=== PATIENT | female | born 1960 | race Hispanic/Latino ===

== ENCOUNTER 2017-08-19 05:57 | Emergency (ER) | payer BC ==
[~2017-08-19 05:57] MED LIST: ATOR40TA71 PO; HERBAL SUPPLEMENT PO; HYDR12.54 PO; IBUP-2353 PO; METF10004 PO; MULTIVITAMIN W/IRON PO; SUPER B COMPLEX PO
[2017-08-19] MEDS ORDERED: SODIUM CHLORIDE 0.9% 1000ML 1,000 ML IV ONE (06:21)
[2017-08-19] MEDS ORDERED: ONDANSETRON HCL 4 MG/2 ML VIAL ONE (06:21)
[2017-08-19 06:28] LABS: BASOPHILS % (AUTO) 0.4 % (0.0-5.0); EOSINOPHILS % (AUTO) 0.8 % (0.0-8.0); HEMATOCRIT 40.2 % (36-48); LYMPHOCYTES % (AUTO) 7.8 % (21.0-51.0); MEAN CORPUSCULAR HEMOGLOBIN 27.7 pg (27.0-33.0); MEAN CORPUSCULAR HGB CONC 34.2 g/dL (32.0-36.0); MONOCYTES % (AUTO) 4.4 % (3.0-13.0); NEUTROPHILS % (AUTO) 86.6 % (40.0-77.0); PLATELET COUNT (AUTO) 303 K/uL (130-400); RED BLOOD CELL COUNT(AUTO) 4.96 MIL/uL (4.00-5.50); RED CELL DISTRIBUTION WIDTH 14.2 % (11.0-15.5); WHITE BLOOD COUNT (AUTO) 10.5 K/uL (4.8-10.8)
[2017-08-19] MEDS ORDERED: DICYCLOMINE HCL 20 MG TAB ONE (06:37)
[2017-08-19 06:38] LABS: ALBUMIN 3.7 g/dL (3.5-5.0); BILIRUBIN,DIRECT 0.2 mg/dL (0.0-0.3); BILIRUBIN,TOTAL 0.9 mg/dL (0.2-1.0); POTASSIUM 3.3 mmol/L (3.5-5.1); TOTAL PROTEIN, SERUM 7.7 g/dL (6.0-8.3)
[2017-08-19] MEDS ORDERED: KETOROLAC TROMETHAMINE 30MG/ML ONE (06:44)
[2017-08-19] MEDS ORDERED: INSULIN HUMULIN R 100 UNIT/ML 3ML ONE (06:45)
[2017-08-19] MEDS ORDERED: POTASSIUM BICARB/CIT AC 25 MEQ TABLET.EFF ONE (07:21)
== END 2017-08-19 08:11 | disposition home or self-care (01) ==
LOC: EDH 05:57
DX: J09.X2 Influenza due to identified novel influenza A virus with other respiratory manifestations (principal); E11.65 Type 2 diabetes mellitus with hyperglycemia; E87.6 Hypokalemia; I10 Essential (primary) hypertension; Z88.6 Allergy status to analgesic agent
CPT/HCPCS: 36415; 80048; 80076; 82948; 84484; 85025; 93005; 96361; 96374; 96375; 99285; J1815; J1885; J2405; J7030

== ENCOUNTER 2024-12-22 02:50 | Observation (INO) | payer BC, MEDICARE ==
[~2024-12-22] VITALS: Ht 157.5 cm; Wt 65.8 kg
[~2024-12-22 02:50] MED LIST changes: -IBUP-2353 PO; +IBUP-2784 PO; +METF-446 PO; -METF10004 PO
[2024-12-22 03:26] LABS: BASOPHILS # (AUTO) 0.02 K/uL (0.00-0.20); BASOPHILS % (AUTO) 0.4 % (0.0-5.0); EOSINOPHILS # (AUTO) 0.05 K/uL (0.00-0.70); EOSINOPHILS % (AUTO) 0.9 % (0.0-8.0); HEMATOCRIT 37.1 % (36-48); IMMATURE GRANULOCYTE ABSOLUTE 0.04 K/uL (0-1); LYMPHOCYTES # (AUTO) 0.6 K/uL (1.0-4.8); LYMPHOCYTES % (AUTO) 9.9 % (21.0-51.0); MEAN CORPUSCULAR HEMOGLOBIN 27.4 pg (27.0-33.0); MEAN CORPUSCULAR HGB CONC 33.7 g/dL (32.0-36.0); MEAN CORPUSCULAR VOLUME 81.4 fL (79-99); MONOCYTES # (AUTO) 1.1 K/uL (0.1-1.0); MONOCYTES % (AUTO) 20.1 % (3.0-13.0); NEUTROPHILS # (AUTO) 3.8 K/uL (1.8-7.7); PLATELET COUNT (AUTO) 248 K/uL (130-400); RED BLOOD CELL COUNT(AUTO) 4.56 MIL/uL (4.00-5.50); WHITE BLOOD COUNT (AUTO) 5.6 K/uL (4.8-10.8)
[2024-12-22 03:33] LABS: RAPID GROUP A STREP negative (NEGATIVE)
[2024-12-22 03:35] LABS: CREATININE 2.2 mg/dL (0.5-1.0); POTASSIUM 3.1 mmol/L (3.5-5.1)
--- NOTE | 2024-12-22 03:40 | ERN ---
ED Note History of Present Illness Stated Complaint: C/O, ABD PAIN W/ DRY HEAVES AND DIARRHEA Chief Complaint: Abdominal Pain Time Seen by MD: 03:19 Dictation: This is a 64-year-old female who presented to the emergency room with complaints of abdominal pain dry heaves and severe nausea and diarrhea. This has been going on since Friday and patient was seen in the [facility] urgent care and was basically given nausea medicine and educated on hydrating herself. Patient woke up at 2 and was continuing to have diarrhea and felt extremely weak and decided to come into the ER. He has not been able to eat or keep anything down with a profuse diarrhea. Also reports subjective fevers with chills. No other family members are sick. Temperature 97.1 pulse 89 respirations 20 blood pressure 137/70 with a pulse oximetry of 98% on room air Her chronic medical problems include diabetes mellitus, hypertension and anemia Allergies: Coded Allergies: lisinopril (Unverified Allergy, Unknown, 10/09/15) Home Meds Reported Medications Atorvastatin Calcium (Atorvastatin Calcium) 40 Mg Tablet, 40 MG PO HS, TAB 03/19/16 Metformin HCl (Metformin HCl) 1,000 Mg Tablet, 1000 MG PO BID, TAB 03/19/16 Ibuprofen (Ibuprofen 200 mg Tablet) 200 Mg Tablet, 200 MG PO AD PRN for PAIN, TAB 10/06/15 [Super B Complex] No Conflict Check, 2 CAP PO DAILY 10/06/15 [Herbal Supplement] No Conflict Check, 2 CAP PO DAILY 10/06/15 [Multivitamin W/Iron] No Conflict Check, 3 TAB PO DAILY 10/06/15 Hydrochlorothiazide (Hydrochlorothiazide) 12.5 Mg Tablet, 12.5 MG PO DAILY, TAB 10/06/15 Past Medical History Past Medical History: Anemia, Diabetes-Type II, Hypertension Surgical History: Cholecystectomy Family History: Negative Social History: Negative History: Not Applicable RN Note Reviewed/Agreed w/PFSH: Yes Review of System Dictation Constitutional: Negative for fever,chills, and weight loss Eyes: Negative for injury, pain,redness, and discharge ENT: Negative for injury,pain or swelling Cardiovascular: Negative for chest pain, palpitations, and edema Respiratory: Negative for shortness of breath, cough, and wheezing, Abdomen/GI: Positive for abdominal pain, nausea, vomiting, diarrhea, and denied constipation Back: Negative for injury and pain : Negative for injury, bleeding and discharge MS/Extremity: Negative for injury and deformity Skin: Negative for rash, and discoloration Neuro: Negative for headache, weakness, numbness, tingling, and seizure Psych: Negative for suicide ideation, homicidal ideation, and hallucinations Initial Vital Sign VS Vital Signs Date Time Temp Pulse Resp B/P (MAP) Pulse Ox O2 Delivery O2 Flow Rate FiO2 12/22/24 02:52 97.2 89 20 137/70 98 Room Air 12/22/24 03:21 0 21 Physical Exam Dictation General: awake, alert, NAD Head/Face: Normocephalic, atraumatic Eyes: PERRL, EOMI, vision at baseline ENT: oral cavity clear, TMs clear, no signs of infection Neck: Trachea midline, supple, no nuchal rigidity Cardiovascular: RRR, normal S1/S2, No MRGs, no JVD Respiratory: CTAB, no respiratory distress, No rales or wheezes Abdomen: Soft, non-tender, non-distended, normal bowel sounds, no guarding or rebound. Skin: Warm, dry, normal turgor, no rash MS/Extremity: Pulses equal, no cyanosis, neurovascular intact, FROM Neuro: COAx4, GCS 15, strength 5/5, CN 2-12 intact, normal cerebellar exam, normal gait, Psych: Normal behavior, mood, and affect normal Extremities-trace edema without any palpable cords, Homans sign is negative Results (Laboratory/Radiology) Laboratory/Radiology Laboratory Tests Test 12/22/24 03:11 12/22/24 03:17 White Blood Count 5.6 K/uL (4.8-10.8) Red Blood Count 4.56 MIL/uL (4.00-5.50) Hemoglobin 12.5 g/dL (12.0-16.0) Hematocrit 37.1 % (36-48) Mean Corpuscular Volume 81.4 fL (79-99) Mean Corpuscular Hemoglobin 27.4 pg (27.0-33.0) Mean Corpuscular Hemoglobin Concent 33.7 g/dL (32.0-36.0) Red Cell Distribution Width 16.0 % (11.0-15.5) H Platelet Count 248 K/uL (130-400) Mean Platelet Volume 10.1 fL (7.5-10.5) Immature Granulocyte % (Auto) 0.7 % (0-1) Neutrophils (%) (Auto) 68.0 % (40.0-77.0) Lymphocytes (%) (Auto) 9.9 % (21.0-51.0) L Monocytes (%) (Auto) 20.1 % (3.0-13.0) H Eosinophils (%) (Auto) 0.9 % (0.0-8.0) Basophils (%) (Auto) 0.4 % (0.0-5.0) Neutrophils # (Auto) 3.8 K/uL (1.8-7.7) Lymphocytes # (Auto) 0.6 K/uL (1.0-4.8) L Monocytes # (Auto) 1.1 K/uL (0.1-1.0) H Eosinophils # (Auto) 0.05 K/uL (0.00-0.70) Basophils # (Auto) 0.02 K/uL (0.00-0.20) Absolute Immature Granulocyte (auto 0.04 K/uL (0-1) Nucleated Red Blood Cells 0.0 % (0.0-0.19) White Cell Morphology Comment See comments Sodium Level 136 mmol/L (136-145) Potassium Level 3.1 mmol/L (3.5-5.1) L Chloride Level 100 mmol/L (101-111) L Carbon Dioxide Level 23 mmol/L (21-32) Blood Urea Nitrogen 40 mg/dL (7-18) H Creatinine 2.2 mg/dL (0.5-1.0) H Glomerular Filtration Rate Calc 24 mL/min (>90) Random Glucose 183 mg/dL (70-105) H Total Calcium 8.7 mg/dL (8.5-10.1) Lipase 40 U/L (16-77) Influenza Type A Antigen Negative For Type A Influenza Type B Antigen Negative For Type B SARS-CoV-2, RNA, NAAT NEGATIVE SARS CoV-2 Group A Streptococcus Rapid negative (NEGATIVE) Labs Reviewed?: Yes ED Course ED Course Orders Procedure Category Date Status Time Vital Signs Per CPOE 12/22/24 Transmitted Routine 03:08 Saline Lock Iv CPOE 12/22/24 Transmitted 03:08 Cbc With Differential LAB 12/22/24 Complete 03:08 Lipase LAB 12/22/24 Complete 03:08 Urinalysis Profile LAB 12/22/24 Logged 03:08 Basic Metabolic Panel LAB 12/22/24 Complete 03:08 Influenza Type A & B, LAB 12/22/24 Complete Rapid 03:16 Rapid (Group A Strep) LAB 12/22/24 Complete 03:16 Covid Rna Naat LAB 12/22/24 Complete 03:16 0.9%Nacl 1000ml (Ns PHA 12/22/24 Complete 1000ml) 04:00 Morphine 2mg Syg PHA 12/22/24 Complete (Morphine 2mg Syg) 04:00 Ondansetron 4mg Inj PHA 12/22/24 Complete (Zofran 4mg Inj) 04:00 Potassium Bicarb/Cit PHA 12/22/24 Complete Ac 25meq (K-Lyte Ta 04:00 Ct Abdomen/Pelvis W/O CT 12/22/24 Taken Contrast 03:51 Blood Cult MARRY 12/22/24 Logged 05:21 Stool Panel Gi By Pcr LAB 12/22/24 Logged 05:21 Current Medications Medications (Trade) Dose Ordered Sig/Haroon Route PRN Reason Start Time Stop Time Status Last Admin Dose Admin Morphine Sulfate (morPHINE 2MG SYG) 2 mg ONCE ONCE IVP 12/22/24 04:00 12/22/24 04:01 DC 12/22/24 03:44 Ondansetron HCl (zoFRAN 4MG INJ) 4 mg ONCE ONCE IVP 12/22/24 04:00 12/22/24 04:01 DC 12/22/24 03:43 Potassium Bicarbonate (K-Lyte Tablet Eff 25 Meq Tablet.eff) 50 meq ONCE ONCE PO 12/22/24 04:00 12/22/24 04:01 DC 12/22/24 04:49 Sodium Chloride 1,000 ml @ 0 mls/hr ONCE ONCE IV 12/22/24 04:00 12/22/24 04:01 DC 12/22/24 03:43 Vital Signs Date Time Temp Pulse Resp B/P (MAP) Pulse Ox O2 Delivery O2 Flow Rate FiO2 12/22/24 05:56 98.4 82 18 132/75 98 Room Air* 0 12/22/24 03:21 98.4 82 18 140/89 98 Room Air* 0 12/22/24 02:52 97.2 89 20 137/70 98 Room Air We will perform diagnostic labs, advanced imaging and administer medications according to the patient's complaint. Once the results are available, will review and personally interpreted the labs to rule out any acute life- threatening emergency the trach require immediate intervention and treatment. I will then re-evaluate the patient after treatment and diagnostic exams have return to determine whether the patient requires any further testing, can safely be discharged home or need further admission to hospital for additional treatment and evaluation. Labs reviewed CBC is with a normal limits viral swabs were all negative BNP 7 shows a potassium of 3.1 and BUN and creatinine are 40 [address] scan of the abdomen and pelvis is pending Continue hydration antiemetic and if she has any loose stool we will also send it for stool studies 5:[address] scan of the abdomen and pelvis stat read reading revealed mild to moderate fatima colitis greatest in the right colon but no evidence of any diverticulitis or appendicitis. I have recommended admission to the hospital for further management and IV antibiotic therapy, IV fluids as well as symptomatic treatment for diarrhea 6:34 a.m. patient was accepted by [facility]-level provider for hospitalist group for admission and further management Medical Decision Making MDM MDM: Differential diagnosis: Severe colitis Diverticulitis, gastroenteritis, small- bowel obstruction, ischemic colitis Rationale: Tests considered and ordered secondary to shared decision making include: labs, ECG and radiology Previous outside records reviewed: Old ER visits. Risk of complication and/or morbidity or mortality of patient management: None Medications-Per medication reconciliation Need for hospitalization: Patient does meet criteria for hospitalization. Need for emergency major/minor surgery: No There are no social concerns with this patient. Prescription drug management Prescriptions will include symptomatic care Patient's prior external medical records from other ER visits were reviewed by me as indicated. Prior testing and results from previous visits were reviewed. Prior tests were taken into account with medical decision making and resource utilization, independent historian/historians were used to obtain complete medical history. I independently interpreted the test that were performed, results were reviewed by me and considered findings on radiology if ordered. Medical management and examination interpretation discussions were had by me with other qualified healthcare professionals as indicated for the patient's care. Problem List Problem List: (1) Colitis (2) Abdominal pain (3) Diarrhea (4) Hypokalemia (5) Acute kidney injury DX & DISP Disposition: Inpatient Decision to Admit Time: 04:52 Departure Impression: Primary Impression: Abdominal pain Additional Impressions: Diarrhea, Hypokalemia, Acute kidney injury, Colitis Condition: Stable Additional Instructions: Patient was informed of all the diagnostic labs and procedures conducted in the emergency room today and demonstrated understanding of the results. I personally reviewed and interpreted all the diagnostic exams performed in the ER today. The patient will be admitted to the hospital for further treatment and evaluation. Disposition-admit to facility Condition-stable/guarded Course-uncertain at this time Pain status-decreased Assessment-exam unchanged Admission Certification- I certify that the patients status is appropriate and is based on my best clinical judgment and the patient's condition as documented in the medical records Referrals: NOEMI CACERES (PCP) SEGUNDO SMYTH MD December 22, 2024 03:40
[2024-12-22 03:42] LABS: SARS-CoV-2, RNA, NAAT NEGATIVE SARS CoV-2 (NEGATIVE)
[2024-12-22 03:43] LABS: INFLUENZA TYPE A Negative For Type A (NEGATIVE); INFLUENZA TYPE B Negative For Type B (NEGATIVE)
[2024-12-22] MEDS: 0.9%NACL 1000ML 1,000 ML IV ONE (03:43)
[2024-12-22] MEDS: ondanSETRON 4MG INJ IVP ONE (03:43)
[2024-12-22] MEDS: morPHINE 2 MG SYG IVP ONE (03:44)
[2024-12-22] MEDS: PoTASSium BIcarbonate/CIT AC 25 MEQ TABLET.EFF PO ONE (04:49)
[2024-12-22] MEDS: ZOSYN 3.375GM +NS 50ML IV ONE (07:02)
--- NOTE | 2024-12-22 07:26 | NUR ---
MED REC: DID NOT BRING IN HOME MEDICATIONS
--- NOTE | 2024-12-22 07:26 | NUR ---
MADE AWARE OF URINE ORDER.
[2024-12-22 08:20] VITALS: O2SAT 98
--- NOTE | 2024-12-22 08:35 | HMCIMG ---
Exam Type: CT ABDOMEN/PELVIS W/O CONTRAST Clinical Information: abdominal pain diarrhea Comparison: None CT Dose Index (CTDI): 10.20 mGy Dose Length Product (DLP): 530.00 total mGy-cm PROTOCOL: Routine noncontrast helical scanning of the abdomen and pelvis was performed at 5mm collimation. Findings: No evidence of nephro or ureterolithiasis is found. No hydronephrosis or ureteral dilatation is seen. The lung bases are clear. The stomach is unremarkable. It shows no wall thickening. No gross ulceration is seen. It is not overly distended. There are no surrounding inflammatory changes. No wall lesions are identified to suggest cancer. The spleen is unremarkable. It is not enlarged. The pancreas shows normal anatomy. It is not fatty replaced. It shows no lesions. The pancreatic duct is not dilated. The gallbladder is surgically absent. The adrenal glands are unremarkable. There is no enlargement. No lesions are noted. The liver is unremarkable. It shows no focal masses. The appendix is unremarkable. It shows no evidence of inflammation. No appendicolith is seen. The small bowel is unremarkable. There is no evidence of dilatation to suggest obstruction. No evidence of adynamic ileus is seen. There is no small bowel wall thickening to suggest enteritis. Right pey[place] colitis. The urinary bladder is unremarkable. There is no wall thickening to suggest tumor or inflammation. There are no intraluminal calculi. There are no diverticula. There is no evidence of chronic bladder outlet obstruction. There is no evidence of urinary bladder distention to suggest urinary retention. The other pelvic structures are unremarkable. The bony and vascular structures are unremarkable for the patient's age. IMPRESSION: Right [place] colitis. This study was performed using dose reduction techniques to include automated exposure control and/or adjustment of the mA and/or kV according to patient size.
[2024-12-22 08:44] VITALS: BP 105/64; PULSE 86; RESP 16; TEMP 98.2
[2024-12-22] MEDS ORDERED: ondanSETRON 4MG INJ IV PRN (09:30)
[2024-12-22] MEDS ORDERED: GLUCAGON 1MG KIT 1 MG ML IM PRN (09:30)
[2024-12-22] MEDS ORDERED: DiphenhydrAMINE HCL 50 MG/ML VIAL IV PRN (09:30)
[2024-12-22] MEDS ORDERED: NITROGLYCERIN 0.4 MG SL TAB SL PRN (09:30)
[2024-12-22] MEDS ORDERED: DEXTROSE 50%-WATER 50 ML DISP.SYRIN IV PRN (09:30)
[2024-12-22] MEDS ORDERED: hydrALAZine 20MG/ML VIAL IV PRN (09:30)
[2024-12-22] MEDS ORDERED: MAG/ALUM/SIMETH 30 ML UDCUP PO PRN (09:30)
[2024-12-22] MEDS ORDERED: oxyCODONE/aceTAMIN 5/325MG TAB PO PRN (09:30)
[2024-12-22] MEDS ORDERED: acetaMINOPHEN 325 MG TAB PO PRN ×3 (09:30)
[2024-12-22] MEDS ORDERED: FAMOTIDINE 20MG VIAL IV PRN (09:30)
[2024-12-22] MEDS ORDERED: traMADol HCL 50 MG TABLET PO PRN (09:30)
[2024-12-22] MEDS ORDERED: morPHINE 2 MG SYG IVP PRN (09:30)
[2024-12-22] MEDS ORDERED: guaiFENesin-DM 200/20MG 10ML PO PRN (09:30)
[2024-12-22] MEDS ORDERED: LACTULOSE 20 GM/30 ML UDCUP PO PRN (09:30)
[2024-12-22] MEDS ORDERED: ZOLPidem TARTrate 5 MG TAB PO PRN (09:30)
--- NOTE | 2024-12-22 10:18 | HP ---
[facility] HISTORY AND PHYSICAL Date of Service: December 22, 2024 Time of Service: 10:09 PCP:dr DINA CACERES Admitting:Dr Flores, Allergies: Lisinopril HISTORY OF PRESENT ILLNESS: [ Patient is 64 years old female with a past medical history of diabetes, hypertension, hyperlipidemia, iron-deficiency anemia, cholecystectomy, who came to emergency department with a complains of severe abdominal pain, nausea, vomiting, fever, chills and diarrhea. Patient stated that all the symptoms have started on Friday where she was seen in the [facility] urgent care where she was given nausea medicine and educated on hydrating herself. Patient woke up at 2 am and was continuing to have diarrhea and felt extremely weak and decided to come to the ER. He has not been able to eat or keep anything down with a profuse diarrhea. Most recent vital signs temperature 98.2 pulse 86 respirations 16 blood pressure 105/64 patient is on room air satting 99%. WBC 5.6 hemoglobin 12.5 hematocrit 37.1 platelets 248 sodium 136 potassium 3.1 CO2 23 BUN 40 creatinine 2.2 random glucose 183 calcium 8.7 lipase 40. Influenza A negative influenza B negative SARS COVID negative group a strep rapid negative. CT abdomen/pelvis showed right peyton colitis. We will consult GI for further evaluation/recommendation. We will also consult dietary in the meantime regards diet for colitis. Patient will be admitted under [facility] group for further evaluation/recommendation. Patient agrees with the further, above-stated plan. REVIEW OF SYSTEMS CONSTITUTIONAL: Denies night sweats. No unintentional weight loss reported. Patient complains of fevers and chills NEUROLOGICAL: Denies headache, amaurosis fugax, motor weakness, sensory deficit, vertigo/spinning sensation, gait abnormalities, or tremors. ENT: No hearing loss, otalgia, otorrhea, rhinitis, rhinorrhea, hoarseness, or sore throat. CARDIOVASCULAR: Denies any exertional angina, dyspnea on exertion, orthopnea, paroxysmal nocturnal dyspnea, palpitations, life-threatening arrhythmias, claudication. PULMONARY: Denies any shortness of breath, cough, phlegm/sputum, hemoptysis, pleuritic chest pain. SLEEP: Denies morning headaches, daytime somnolence or napping. Denies difficulty falling asleep, staying asleep, waking from sleep. Denies knowledge of snoring. GASTROINTESTINAL: Denies any type of dysphagia to either liquids or solids. Denies pyrosis, early satiety, constipation, or changes in stool consistency or caliber. Denies coffee-ground emesis, hematemesis, hematochezia, or melanotic stools. Patient complains of abdominal pain, nausea, vomiting, diarrhea GENITOURINARY: Denies frequency, urgency, nocturia, hematuria or incontinence (Storage/Irritative symptoms.) Low urinary stream, straining to void, urinary intermittency or hesitancy, splitting of the voiding stream, terminal dribbling. ENDOCRINOLOGIC: Denies polyuria, polydipsia, polyphagia or heat/cold intolerances. HEMATOLOGIC: Denies thrombophilia/previous clots, or coagulopathy/bleeding disorders. ONCOLOGIC: Denies personal history of malignancy. DERMATOLOGIC: Denies rashes or pruritus. PSYCHIATRIC: Denies any suicidal or homicidal ideation. Denies hallucinations. PAST MEDICAL HISTORY: [Diabetes, hypertension, hyperlipidemia, iron-deficiency anemia ] PAST SURGICAL HISTORY: [ Cholecystectomy ] PAST SOCIAL HISTORY: [ Patient denies drug illicit. Patient denies any alcohol use. Patient denies smoking] FAMILY HISTORY: [ Patient lives at home with the . Patient is independent ] Coded Allergies: lisinopril (Unverified Allergy, Unknown, 10/09/15) PHYSICAL EXAM GENERAL APPEARANCE: The patient is awake, alert, and oriented, in no acute cardiopulmonary distress. NEUROLOGICAL: Cranial nerves II-XII grossly intact. Motor is 5/5 in bilateral upper and lower extremities proximal to distal. No sensory deficits. HEENT: Face is symmetric. Pupils are equal and reactive. Extraocular movements are intact. NECK: Supple. No JVD. No thyromegaly. No submental, submandibular, pre- /postauricular, occipital or supraclavicular lymphadenopathy. CHEST: Normal chest expansion. No Telemetry. LUNGS: Absence of any rales, rhonchi or any wheezing. CARDIOVASCULAR: Regular. S1 and S2 normal. No appreciable rubs, murmurs or gallops. ABDOMEN: Soft, nontender, and nondistended. There is no rebound, voluntary guarding, or rigidity. : Deferred. No Jernigan. EXTREMITIES: Non-edematous and not cyanotic. No clubbing. Good capillary refill. SKIN: No skin breakdown. Vital Sign (Last 24 Hours) 12/22/24 12/22/24 07:17 08:44 Temp 98.2 Pulse 86 Resp 16 B/P (MAP) 105/64 Pulse Ox 98 O2 Delivery Room Air* O2 Flow Rate 0 FiO2 21 LABS: Laboratory: Test 12/22/24 03:17 12/22/24 03:11 Range/Units Influenza Type A Antigen Negative For Type A NEGATIVE Influenza Type B Antigen Negative For Type B NEGATIVE SARS-CoV-2, RNA, NAAT NEGATIVE SARS CoV-2 NEGATIVE Group A Streptococcus Rapid negative NEGATIVE White Blood Count 5.6 4.8-10.8 K/uL Red Blood Count 4.56 4.00-5.50 MIL/uL Hemoglobin 12.5 12.0-16.0 g/dL Hematocrit 37.1 36-48 % Mean Corpuscular Volume 81.4 79-99 fL Mean Corpuscular Hemoglobin 27.4 27.0-33.0 pg Mean Corpuscular Hemoglobin Concent 33.7 32.0-36.0 g/dL Red Cell Distribution Width 16.0 H 11.0-15.5 % Platelet Count 248 130-400 K/uL Mean Platelet Volume 10.1 7.5-10.5 fL Immature Granulocyte % (Auto) 0.7 0-1 % Neutrophils (%) (Auto) 68.0 40.0-77.0 % Lymphocytes (%) (Auto) 9.9 L 21.0-51.0 % Monocytes (%) (Auto) 20.1 H 3.0-13.0 % Eosinophils (%) (Auto) 0.9 0.0-8.0 % Basophils (%) (Auto) 0.4 0.0-5.0 % Neutrophils # (Auto) 3.8 1.8-7.7 K/uL Lymphocytes # (Auto) 0.6 L 1.0-4.8 K/uL Monocytes # (Auto) 1.1 H 0.1-1.0 K/uL Eosinophils # (Auto) 0.05 0.00-0.70 K/uL Basophils # (Auto) 0.02 0.00-0.20 K/uL Absolute Immature Granulocyte (auto 0.04 0-1 K/uL Nucleated Red Blood Cells 0.0 0.0-0.19 % White Cell Morphology Comment See comments Sodium Level 136 136-145 mmol/L Potassium Level 3.1 L 3.5-5.1 mmol/L Chloride Level 100 L 101-111 mmol/L Carbon Dioxide Level 23 21-32 mmol/L Blood Urea Nitrogen 40 H 7-18 mg/dL Creatinine 2.2 H 0.5-1.0 mg/dL Glomerular Filtration Rate Calc 24 >90 mL/min Random Glucose 183 H 70-105 mg/dL Total Calcium 8.7 8.5-10.1 mg/dL Lipase 40 16-77 U/L Current Medications Medications (Trade) Dose Ordered Sig/Haroon Route PRN Reason Start Time Stop Time Status Last Admin Dose Admin Acetaminophen (TYLenol 325MG TAB) 650 mg Q4H PRN PO MILD PAIN (1-3) 12/22/24 09:30 12/22/24 09:28 DC Acetaminophen (TYLenol 325MG TAB) 650 mg Q6H PRN PO MILD PAIN (1-3) 12/22/24 09:30 01/21/25 09:29 Acetaminophen (TYLenol 325MG TAB) 650 mg Q6H PRN PO TEMPERATURE GREATER THAN 101.5 12/22/24 09:30 01/21/25 09:29 Al Hydroxide/Mg Hydroxide (MAALox PLUS 30ML) 30 ml Q6H PRN PO INDIGESTION 12/22/24 09:30 01/21/25 09:29 Dextrose (D50w) 50 ml AD PRN IV HYPOGLYCEMIA PROTOCOL 12/22/24 09:30 01/21/25 09:29 Diphenhydramine HCl (BENAdryl INJ) 25 mg Q6H PRN IV SEVERE ITCHING/RASH 12/22/24 09:30 01/21/25 09:29 Famotidine (Pepcid 20mg Vial) 20 mg BID IV 12/22/24 21:00 01/21/25 20:59 Famotidine (Pepcid 20mg Vial) 20 mg BID PRN IV NAUSEA/VOMITING 12/22/24 09:30 12/22/24 09:28 DC Glucagon (Glucagon 1mg Kit) 1 mg AD PRN IM HYPOGLYCEMIA PROTOCOL 12/22/24 09:30 01/21/25 09:29 Guaifenesin/ Dextromethorphan (RobiTUSSin DM 200/20MG 10ML) 10 ml Q4H PRN PO COUGH 12/22/24 09:30 01/21/25 09:29 Heparin Sodium (Porcine) (HEParin 5,000 UNIT VIAL) 5,000 unit BID SQ 12/22/24 21:00 01/21/25 20:59 Hydralazine HCl (APRESOLine 20MG INJ) 10 mg Q6H PRN IV For:SBP above 160;DBP above 90 12/22/24 09:30 01/21/25 09:29 Insulin Human Regular (humuLIN R 100 UNIT/ML 3ML) INSULIN SLIDING SCAL... ACHS SQ 12/22/24 11:30 01/21/25 11:29 Lactulose (Constulose 20gm/ 30ml Udcup) 20 gm BID PRN PO CONSTIPATION 12/22/24 09:30 01/21/25 09:29 Magnesium Sulfate 50 ml @ 0 mls/hr PROTOCOL PRN IV OTHER [SEE ORDER COMMENTS] 12/22/24 09:30 01/21/25 09:29 Morphine Sulfate (morPHINE 2MG SYG) 1 mg Q4H PRN IVP SEVERE PAIN (7-10) IF NPO 12/22/24 09:30 12/29/24 09:29 Nitroglycerin (Nitrostat) 0.4 mg PROTOCOL PRN SL CHEST PAIN 12/22/24 09:30 01/21/25 09:29 Ondansetron HCl (zoFRAN 4MG INJ) 4 mg Q6H PRN IV NAUSEA/VOMITING 12/22/24 09:30 01/21/25 09:29 Oxycodone/ Acetaminophen (perCOCET) 1 tab Q6H PRN PO SEVERE PAIN (7-10) 12/22/24 09:30 12/29/24 09:29 Piperacillin Sod/ Tazobactam Sod 50 ml @ 12.5 mls/hr ZOSY8 IV 12/22/24 13:00 01/01/25 12:59 Sodium Chloride 1,000 ml @ 100 mls/hr Q10H IV 12/22/24 09:30 01/21/25 09:29 Tramadol HCl (UltRAM) 50 mg Q6H PRN PO MODERATE PAIN (4-6) 12/22/24 09:30 12/27/24 09:29 Zolpidem Tartrate (AmbIEN) 5 mg HS PRN PO INSOMNIA 12/22/24 09:30 01/21/25 09:29 DIAGNOSTICS / RADIOLOGY: [ ] ASSESSMENT: [Acute kidney injury POA Right peyton colitis per CT abdomen/pelvis POA Severe abdominal pain associated with the nausea and vomiting POA Uncontrolled hypertension POA Uncontrolled diabetes mellitus type 2 with hyperglycemia POA Iron-deficiency anemia POA Electrolyte imbalance hypokalemia K3.1 Acute severe dehydration POA Hyperlipidemia POA History of cholecystectomy ] PLAN: [ Admit to: Medical-surgical floor Consults: GI, dietary Antibiotics: Zosyn Tests: Chest x-ray Fluids normal saline at 100 mL/hour NEURO: Minimize central acting medications as possible. Fall Precautions. Well lighted room through the day and minimize interruptions through the night to prevent acute delirium. PULMONARY: Chest x-ray pending Supplemental 02 as needed BiPAP as necessary, for respiratory distress Titrate Fio2 to keep Spo2 > or = 90% DuoNebs and CPT as needed IS hourly while awake for pulmonary hygiene Out of bed to chair as tolerated VAP Bundle Maintain aspiration precautions at all times CARDIOVASCULAR: Follow hemodynamics. Vital signs per facility protocol GI & NUTRITION: GI consultation pending CT abdomen/pelvis showed right peyton colitis Continue nutritional support Aspirations precautions Prokinetic agents and laxatives as needed KIDNEYS & ELECTROLYTES: Patient will receive two doses of potassium 40 mEq for potassium of 3.1 Strict monitoring of intake and output Daily weights Avoid nephrotoxic agents Monitor electrolytes and replace as needed Goal urine output of 30mL/hr or 0.5mL/kg/hr Medications to be dosed according to renal function. Avoid contrast if possible ENDOCRINE: Maintain blood glucose between 100-180 at all times. Insulin sliding scale for blood glucose management Hypoglycemia and hyperglycemia protocol in place INFECTIOUS DISEASE: Trend temperature, WBC and procalcitonin level Follow cultures, deescalate antibiotics as soon as possible. Panculture if new onset fever HEMATOLOGY & COAGULATION: Monitor H&H. Keep Hgb > 7 Transfuse 1 unit of PRBC for Hgb < 7 Transfuse 1 pack of platelets of platelets < 20, 000 Watch for any signs and symptoms of bleeding SKIN: Pressure ulcer prevention per facility protocol Specialty mattress as needed Treatment plan discussed with patient and family at the bedside Medications to be reconciled once obtained by patient and/or family and available to be reconciled in computer p.r.n. medication for pain nausea and vomiting Questions were answered We will continue to monitor the patient closely Anesthetic Assistant for disposition Rehab: PT/OT GI: PPI DVT: SCD's Code Status: Full Resuscitation Disposition: TBD Prognosis: Guarded ] ADVANCED CARE PLANNING 1. Which of the following were discussed? Hospice Care - Yes / No Therapeutic options - Yes / No Advance Directives - Yes / No Other discussions - 2. Discussed with who? Patient 3. Voluntary nature of this service was explained to the patient? Yes / No 4. Amount of time spent - __ more than 35 minutes 5. Reviewed by Physician? (if this service was performed by NPP) Yes / No ATTESTATION BY PHYSICIAN I have seen and examined the patient. I reviewed the documentation, medical decision making, and treatment plan as noted by the mid-level provider above. I agree with the findings and plan of care. JUDD Carrera MD FREIGHT CALLER December 22, 2024 10:18
--- NOTE | 2024-12-22 10:35 | NUR ---
DCP: HOME Pt currently lives at home with her Lonnie Clifford [phone]. Pt denies any insecurities with food, mcc, and/or utilities. Pt does not have any DME, provider, or home health services. Pt states that prior to coming into the hospital she was able to complete all her ADLs independently. PCP is Yola Kuo and uses [facility] for any RX needs. At [place] pt will return home and can help with transportation. Addendum: 12/22/24 at 1041 by DAVID WORRELL SS Amended: Links added.
[2024-12-22] MEDS: PoTASSium chloRIDE 20MEQ ER 20 MEQ ERTAB PO ONE ×2 (11:12→20:56)
[2024-12-22] MEDS: 0.9%NACL 1000ML 1,000 ML IV SCH (11:13)
[2024-12-22] MEDS: INSULIN humuLIN R 100 UNIT/ML 3ML SQ SCH (11:30)
--- NOTE | 2024-12-22 11:33 | CONS ---
GASTROENTEROLOGY CONSULTATION NOTE Date of Consultation: December 22, 2024 Time of Consultation: 11:32 History of Present Illness: This is a 64-year-old female with past medical history of diabetes, hypertension, hyperlipidemia, CATHLEEN, cholecystectomy who presented due to severe abdominal pain, nausea, vomiting, fever, chills and diarrhea. Symptoms began Friday for which she went to urgent care was given nausea medication and told to hydrate. She presented back to the hospital due to profuse diarrhea and inability to keep anything down. WBC normal at 5.6, hemoglobin 12.5 with a platelet count of 258. Potassium 3.1 and BUN and creatinine were elevated. COVID, flu and strep were negative. CT abdomen and pelvis was obtained revealing right hemicolitis. We were consulted due to hemic colitis. Review of Systems: CONSTITUTIONAL: No malaise or change in sensation of wellbeing. ENMT: No rhinorrhea, otorrhea, sinus pain, ear ache. CARDIOVASCULAR: No angina, palpitations, orthopnea or paroxysmal dyspnea. RESPIRATORY: No SOB. GASTROINTESTINAL: No abdominal pain, nausea, vomiting, diarrhea, hematemesis, melena or change in the patient's habitual bowel movements consistency/number. GENITOURINARY: No dysuria, hematuria or change in bladder continence. MUSCULOSKELETAL: No new muscle pain or decrease in muscular strength. No new joint swelling, redness or tenderness. SKIN: No new rash. Past Medical History: PAST MEDICAL HISTORY: [Diabetes, hypertension, hyperlipidemia, iron-deficiency anemia ] PAST SURGICAL HISTORY: [ Cholecystectomy ] PAST SOCIAL HISTORY: [ Patient denies drug illicit. Patient denies any alcohol use. Patient denies smoking] FAMILY HISTORY: [ Patient lives at home with the . Patient is independent ] Coded Allergies: lisinopril (Unverified Allergy, Unknown, 10/09/15) Physical Exam: GEN: Awake, alert, oriented in person, time and place, and in no acute distress. HEENT: No sinus tenderness. Tympanic membranes were not examined. No rhinorrhea. Oral pharyngeal mucosa is pink, moist and within normal limits. Neck is supple with no cervical lymphadenopathy, thyromegaly or JVD. CHEST: Inspection, palpation and percussion of the chest were unremarkable. Lung auscultation revealed normal breath sounds bilaterally. CARDIAC: PMI is within normal limits. Heart sounds are regular. Normal S1, S2. No gallop or murmur. ABD: Soft, non-tender and not distended. No peritoneal signs on palpation. No organomegaly. Normal bowel sounds. EXT: No cyanosis or clubbing. No edema. SKIN: Intact. No rashes. JOINTS: No evidence of synovitis or acute arthritis. NEURO: Alert and oriented to name, place and person. Cranial nerve examination is unremarkable. No focal motor deficits. Normal speech. Gait is normal. Strength is normal. Vital Sign (Last 24 Hours) 12/22/24 12/22/24 07:17 08:44 Temp 98.2 Pulse 86 Resp 16 B/P (MAP) 105/64 Pulse Ox 98 O2 Delivery Room Air* O2 Flow Rate 0 FiO2 21 Laboratory: [ ] Laboratory: Test 12/22/24 03:17 12/22/24 03:11 Range/Units Influenza Type A Antigen Negative For Type A NEGATIVE Influenza Type B Antigen Negative For Type B NEGATIVE SARS-CoV-2, RNA, NAAT NEGATIVE SARS CoV-2 NEGATIVE Group A Streptococcus Rapid negative NEGATIVE White Blood Count 5.6 4.8-10.8 K/uL Red Blood Count 4.56 4.00-5.50 MIL/uL Hemoglobin 12.5 12.0-16.0 g/dL Hematocrit 37.1 36-48 % Mean Corpuscular Volume 81.4 79-99 fL Mean Corpuscular Hemoglobin 27.4 27.0-33.0 pg Mean Corpuscular Hemoglobin Concent 33.7 32.0-36.0 g/dL Red Cell Distribution Width 16.0 H 11.0-15.5 % Platelet Count 248 130-400 K/uL Mean Platelet Volume 10.1 7.5-10.5 fL Immature Granulocyte % (Auto) 0.7 0-1 % Neutrophils (%) (Auto) 68.0 40.0-77.0 % Lymphocytes (%) (Auto) 9.9 L 21.0-51.0 % Monocytes (%) (Auto) 20.1 H 3.0-13.0 % Eosinophils (%) (Auto) 0.9 0.0-8.0 % Basophils (%) (Auto) 0.4 0.0-5.0 % Neutrophils # (Auto) 3.8 1.8-7.7 K/uL Lymphocytes # (Auto) 0.6 L 1.0-4.8 K/uL Monocytes # (Auto) 1.1 H 0.1-1.0 K/uL Eosinophils # (Auto) 0.05 0.00-0.70 K/uL Basophils # (Auto) 0.02 0.00-0.20 K/uL Absolute Immature Granulocyte (auto 0.04 0-1 K/uL Nucleated Red Blood Cells 0.0 0.0-0.19 % White Cell Morphology Comment See comments Sodium Level 136 136-145 mmol/L Potassium Level 3.1 L 3.5-5.1 mmol/L Chloride Level 100 L 101-111 mmol/L Carbon Dioxide Level 23 21-32 mmol/L Blood Urea Nitrogen 40 H 7-18 mg/dL Creatinine 2.2 H 0.5-1.0 mg/dL Glomerular Filtration Rate Calc 24 >90 mL/min Random Glucose 183 H 70-105 mg/dL Total Calcium 8.7 8.5-10.1 mg/dL Lipase 40 16-77 U/L Current Medications Medications (Trade) Dose Ordered Sig/Haroon Route PRN Reason Start Time Stop Time Status Last Admin Dose Admin Acetaminophen (TYLenol 325MG TAB) 650 mg Q4H PRN PO MILD PAIN (1-3) 12/22/24 09:30 12/22/24 09:28 DC Acetaminophen (TYLenol 325MG TAB) 650 mg Q6H PRN PO MILD PAIN (1-3) 12/22/24 09:30 01/21/25 09:29 Acetaminophen (TYLenol 325MG TAB) 650 mg Q6H PRN PO TEMPERATURE GREATER THAN 101.5 12/22/24 09:30 01/21/25 09:29 Al Hydroxide/Mg Hydroxide (MAALox PLUS 30ML) 30 ml Q6H PRN PO INDIGESTION 12/22/24 09:30 01/21/25 09:29 Dextrose (D50w) 50 ml AD PRN IV HYPOGLYCEMIA PROTOCOL 12/22/24 09:30 01/21/25 09:29 Diphenhydramine HCl (BENAdryl INJ) 25 mg Q6H PRN IV SEVERE ITCHING/RASH 12/22/24 09:30 01/21/25 09:29 Famotidine (Pepcid 20mg Vial) 20 mg BID IV 12/22/24 21:00 01/21/25 20:59 Famotidine (Pepcid 20mg Vial) 20 mg BID PRN IV NAUSEA/VOMITING 5/14/25 09:30 12/22/24 09:28 DC Glucagon (Glucagon 1mg Kit) 1 mg AD PRN IM HYPOGLYCEMIA PROTOCOL 12/22/24 09:30 01/21/25 09:29 Guaifenesin/ Dextromethorphan (RobiTUSSin DM 200/20MG 10ML) 10 ml Q4H PRN PO COUGH 12/22/24 09:30 01/21/25 09:29 Heparin Sodium (Porcine) (HEParin 5,000 UNIT VIAL) 5,000 unit BID SQ 12/22/24 21:00 01/21/25 20:59 Hydralazine HCl (APRESOLine 20MG INJ) 10 mg Q6H PRN IV For:SBP above 160;DBP above 90 12/22/24 09:30 01/21/25 09:29 Insulin Human Regular (humuLIN R 100 UNIT/ML 3ML) INSULIN SLIDING SCAL... ACHS SQ 12/22/24 11:30 01/21/25 11:29 Lactulose (Constulose 20gm/ 30ml Udcup) 20 gm BID PRN PO CONSTIPATION 12/22/24 09:30 01/21/25 09:29 Magnesium Sulfate 50 ml @ 0 mls/hr PROTOCOL PRN IV OTHER [SEE ORDER COMMENTS] 12/22/24 09:30 01/21/25 09:29 Morphine Sulfate (morPHINE 2MG SYG) 1 mg Q4H PRN IVP SEVERE PAIN (7-10) IF NPO 12/22/24 09:30 12/29/24 09:29 Nitroglycerin (Nitrostat) 0.4 mg PROTOCOL PRN SL CHEST PAIN 12/22/24 09:30 01/21/25 09:29 Ondansetron HCl (zoFRAN 4MG INJ) 4 mg Q6H PRN IV NAUSEA/VOMITING 12/22/24 09:30 01/21/25 09:29 Oxycodone/ Acetaminophen (perCOCET) 1 tab Q6H PRN PO SEVERE PAIN (7-10) 12/22/24 09:30 12/29/24 09:29 Piperacillin Sod/ Tazobactam Sod 50 ml @ 12.5 mls/hr ZOSY8 IV 12/22/24 13:00 01/01/25 12:59 Sodium Chloride 1,000 ml @ 100 mls/hr Q10H IV 12/22/24 09:30 01/21/25 09:29 12/22/24 11:13 100 MLS/HR Tramadol HCl (UltRAM) 50 mg Q6H PRN PO MODERATE PAIN (4-6) 12/22/24 09:30 12/27/24 09:29 Zolpidem Tartrate (AmbIEN) 5 mg HS PRN PO INSOMNIA 12/22/24 09:30 01/21/25 09:29 Diagnostics / Radiology: [COPY/PASTE HERE IF NO REPORTS PLEASE DELETE SECTION] Assessment: Diarrhea Plan: r/o c diff, await stool GI pcr Colonoscopy offered; however, patient defers Continue GI prophylaxis Avoid NSAIDs Antireflux measures Monitor H&H and transfuse as needed Call with questions, concerns or change in clinical status Patient to follow-up at clinic post discharge Thank you for this consult AMILCAR DO DELI ASSOCIATE December 22, 2024 11:33
--- NOTE | 2024-12-22 11:35 | HMCIMG ---
Exam Type: CHEST 1VW Clinical Information: congestion Comparison: None Findings: The lungs are clear of infiltrates. The heart is normal in size. The bony and soft tissue structures of the chest are unremarkable. Impression: Clear lungs.
[2024-12-22 13:00] VITALS: BP 127/65; PULSE 68; RESP 18; TEMP 97.4
[2024-12-22] MEDS: ZOSYN 3.375GM+NS 50ML 50 ML IV SCH (13:09)
[2024-12-22] MEDS ORDERED: PEG 3350/NA SULF,BICARB,CL/KCL 4000 ML SOLN PO ONE (13:30)
--- NOTE | 2024-12-22 14:00 | NUR ---
Order received and spoke to Edgar, patient's nurse, patient cleared for PT. Spoke to patient and she states she has been walking since being admitted. Declined any skilled need. DC from PT.
[2024-12-22 16:28] VITALS: BP 127/69; PULSE 77; RESP 18; TEMP 98.7
[2024-12-22] MEDS ORDERED: FERR-72 PO (16:53)
[2024-12-22] MEDS ORDERED: OLME20TA68 PO (16:53)
[2024-12-22] MEDS ORDERED: ATOR20TA65 PO (16:53)
[2024-12-22] MEDS ORDERED: METF-445 PO (16:53)
[2024-12-22] MEDS ORDERED: SEMA7TAB2 PO (16:53)
[2024-12-22 19:15] VITALS: O2SAT 99
[2024-12-22 19:37] LABS: APPEARANCE,URINE TURBID (CLEAR); BILIRUBIN,URINE NEGATIVE (NEGATIVE); COLOR,URINE ORANGE (YELLOW); GLUCOSE, URINE (UA) NEGATIVE (NEGATIVE); KETONES,URINE 10 mg/dL (NEGATIVE); LEUKOCYTE ESTERASE ,URINE NEGATIVE Leu/uL (NEGATIVE); NITRATE,URINE NEGATIVE (NEGATIVE); OCCULT BLOOD,URINE NEGATIVE (NEGATIVE); PROTEIN,URINE 70 mg/dL (NEGATIVE); UROBILINOGEN,URINE 0.2 mg/dL (0.2-1.0)
[2024-12-22 20:14] LABS: BACTERIA,URINE MOD /HPF (None Seen); OTHER CASTS, URINE 24 /LPF (None Seen); RBC,URINE 0-1 /HPF (0-1); UNCLASSIFIED CRYSTAL 21 /HPF (None Seen); WBC,URINE 0-1 /HPF (0-1)
[2024-12-22 20:25] VITALS: BP 122/66; PULSE 82; RESP 21; TEMP 97.8
[2024-12-22] MEDS: FAMOTIDINE 20MG VIAL IV SCH (20:56)
[2024-12-22] MEDS: HEParin 5,000 UNIT VIAL SQ SCH (20:58)
[2024-12-23] VITALS: BP 144/71; PULSE 68; RESP 19; TEMP 98.1
[2024-12-23] MEDS: ZOSYN 3.375GM+NS 50ML 50 ML IV SCH (01:28)
[2024-12-23 04:13] VITALS: BP 133/67; PULSE 71; RESP 18; TEMP 98.4
[2024-12-23 04:53] LABS: BASOPHILS # (AUTO) 0.09 K/uL (0.00-0.20); BASOPHILS % (AUTO) 1.4 % (0.0-5.0); EOSINOPHILS # (AUTO) 0.08 K/uL (0.00-0.70); EOSINOPHILS % (AUTO) 1.2 % (0.0-8.0); HEMATOCRIT 34.2 % (36-48); IMMATURE GRANULOCYTE ABSOLUTE 0.43 K/uL (0-1); LYMPHOCYTES # (AUTO) 0.9 K/uL (1.0-4.8); LYMPHOCYTES % (AUTO) 14.1 % (21.0-51.0); MEAN CORPUSCULAR HGB CONC 32.5 g/dL (32.0-36.0); MEAN CORPUSCULAR VOLUME 83.2 fL (79-99); MONOCYTES # (AUTO) 0.7 K/uL (0.1-1.0); MONOCYTES % (AUTO) 11.3 % (3.0-13.0); NEUTROPHILS # (AUTO) 4.2 K/uL (1.8-7.7); NEUTROPHILS % (AUTO) 65.4 % (40.0-77.0); PLATELET COUNT (AUTO) 254 K/uL (130-400); RED BLOOD CELL COUNT(AUTO) 4.11 MIL/uL (4.00-5.50); RED CELL DISTRIBUTION WIDTH 16.3 % (11.0-15.5); WHITE BLOOD COUNT (AUTO) 6.5 K/uL (4.8-10.8)
[2024-12-23 05:30] LABS: ALANINE AMINOTRANSFERASE 18 U/L (12-78); ALBUMIN 3.1 g/dL (3.5-5.0); AMMONIA < 10 umol/L (11-32); AMYLASE 66 U/L (25-115); ASPARTATE AMINOTRANSFERASE 19 U/L (10-37); BILIRUBIN,DIRECT 0.2 mg/dL (0.0-0.3); BILIRUBIN,TOTAL 0.3 mg/dL (0.2-1.0); CARBON DIOXIDE 19 mmol/L (21-32); CHLORIDE 107 mmol/L (101-111); CREATINE KINASE, TOTAL 36 U/L (21-232); CREATININE 1.2 mg/dL (0.5-1.0); GLOMERULAR FILTR. RATE CALC 50 mL/min (>90); GLUCOSE,RANDOM 144 mg/dL (70-105); POTASSIUM 3.8 mmol/L (3.5-5.1); SODIUM SERUM 143 mmol/L (136-145); TOTAL PROTEIN, SERUM 7.1 g/dL (6.0-8.3); UREA NITROGEN, BLOOD 40 mg/dL (7-18)
[2024-12-23 08:00] VITALS: BP 131/74; PULSE 72; RESP 16; TEMP 97.7
[2024-12-23 09:18] VITALS: O2SAT 100
[2024-12-23 12:00] VITALS: BP 130/67; PULSE 66; RESP 16; TEMP 97.3
[2024-12-23] MEDS: MAGNESIUM 2GM PREMIX 50ML 50 ML IV PRN (12:25)
--- NOTE | 2024-12-23 14:40 | DS ---
Discharge Summary Hospital Course Summary: DATE OF ADMISSION:[12/22/2024] DATE OF DISCHARGE:[12/23/2024] DISPOSITION:[Home] CONDITION:[Medically stable] CONSULTANTS:[GI] FOLLOW UP APPOINTMENTS:[PCP 2 to 3 days. 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 CT abdomen/pelvis showed right [place] colitis. GI was consulted and they recommended colonoscopy which patient denied. They also send some stool for PCR and C diff. BENNY came back positive. Today patient stated that she feels much better compared to the previous day and that she does not have diarrhea. Patient is pending evaluation of a dietitian. Once the teaching regards to colitis we will be performed patient is cleared to be discharged home. Patient to follow up outpatient with PCP in 2 to 3 days. And follow up with GI within one week for possible colonoscopy. Procedure(s): REVIEW OF SYSTEMS CONSTITUTIONAL: Denies night sweats. No unintentional weight loss reported. Patient denies any fevers or chills NEUROLOGICAL: Denies headache, amaurosis fugax, motor weakness, sensory deficit, vertigo/spinning sensation, gait abnormalities, or tremors. ENT: No hearing loss, otalgia, otorrhea, rhinitis, rhinorrhea, hoarseness, or sore throat. CARDIOVASCULAR: Denies any exertional angina, dyspnea on exertion, orthopnea, paroxysmal nocturnal dyspnea, palpitations, life-threatening arrhythmias, claudication. PULMONARY: Denies any shortness of breath, cough, phlegm/sputum, hemoptysis, pleuritic chest pain. SLEEP: Denies morning headaches, daytime somnolence or napping. Denies difficulty falling asleep, staying asleep, waking from sleep. Denies knowledge of snoring. GASTROINTESTINAL: Denies any type of dysphagia to either liquids or solids. Denies pyrosis, early satiety, constipation, or changes in stool consistency or caliber. Denies coffee-ground emesis, hematemesis, hematochezia, or melanotic stools. denies of abdominal pain, nausea, vomiting, diarrhea GENITOURINARY: Denies frequency, urgency, nocturia, hematuria or incontinence (Storage/Irritative symptoms.) Low urinary stream, straining to void, urinary intermittency or hesitancy, splitting of the voiding stream, terminal dribbling. ENDOCRINOLOGIC: Denies polyuria, polydipsia, polyphagia or heat/cold intolerances. HEMATOLOGIC: Denies thrombophilia/previous clots, or coagulopathy/bleeding dis orders. ONCOLOGIC: Denies personal history of malignancy. DERMATOLOGIC: Denies rashes or pruritus. PSYCHIATRIC: Denies any suicidal or homicidal ideation. Denies hallucinations. Assessment/Plan: ASSESSMENT: [Acute kidney injury POA Right [place] colitis per CT abdomen/pelvis POA Severe abdominal pain associated with the nausea and vomiting POA Uncontrolled hypertension POA Uncontrolled diabetes mellitus type 2 with hyperglycemia POA Iron-deficiency anemia POA Electrolyte imbalance hypokalemia K3.1 Acute severe dehydration POA Hyperlipidemia POA History of cholecystectomy ] PLAN: [ Admit to: Medical-surgical floor Consults: GI, dietary Antibiotics: Zosyn Tests: Chest x-ray Fluids normal saline at 100 mL/hour NEURO: Minimize central acting medications as possible. Fall Precautions. Well lighted room through the day and minimize interruptions through the night to prevent acute delirium. PULMONARY: Chest x-ray pending Supplemental 02 as needed BiPAP as necessary, for respiratory distress Titrate Fio2 to keep Spo2 > or = 90% DuoNebs and CPT as needed IS hourly while awake for pulmonary hygiene Out of bed to chair as tolerated VAP Bundle Maintain aspiration precautions at all times CARDIOVASCULAR: Follow hemodynamics. Vital signs per facility protocol GI & NUTRITION: GI consultation pending CT abdomen/pelvis showed right [place] colitis Continue nutritional support Aspirations precautions Prokinetic agents and laxatives as needed KIDNEYS & ELECTROLYTES: Patient will receive two doses of potassium 40 mEq for potassium of 3.1 Strict monitoring of intake and output Daily weights Avoid nephrotoxic agents Monitor electrolytes and replace as needed Goal urine output of 30mL/hr or 0.5mL/kg/hr Medications to be dosed according to renal function. Avoid contrast if possible ENDOCRINE: Maintain blood glucose between 100-180 at all times. Insulin sliding scale for blood glucose management Hypoglycemia and hyperglycemia protocol in place INFECTIOUS DISEASE: Trend temperature, WBC and procalcitonin level Follow cultures, deescalate antibiotics as soon as possible. Panculture if new onset fever HEMATOLOGY & COAGULATION: Monitor H&H. Keep Hgb > 7 Transfuse 1 unit of PRBC for Hgb < 7 Transfuse 1 pack of platelets of platelets < 20, 000 Watch for any signs and symptoms of bleeding SKIN: Pressure ulcer prevention per facility protocol Specialty mattress as needed Treatment plan discussed with patient and family at the bedside Medications to be reconciled once obtained by patient and/or family and available to be reconciled in computer p.r.n. 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 Rehab: PT/OT GI: PPI DVT: SCD's Code Status: Full Resuscitation Disposition: TBD Prognosis: Guarded ] Home Medications: Reported Medications Olmesartan Medoxomil (Olmesartan Medoxomil) 20 Mg Tablet, 1 TAB PO DAILY for 30 Days, #30 TAB 0 Refills 12/22/24 Semaglutide (Rybelsus) 7 Mg Tablet, 1 TAB PO DAILY for 30 Days, #30 TAB 0 Refills DIRECTED 12/22/24 Ferrous Sulfate (Ferrous Sulfate) 325 Mg (65 Mg Iron) Tablet, 1 TAB PO DAILY for 30 Days, #30 TAB 0 Refills 12/22/24 Atorvastatin Calcium (Atorvastatin Calcium) 20 Mg Tablet, 1 TAB PO DAILY for 30 Days, #30 TAB 0 Refills 12/22/24 Metformin HCl (Metformin HCl) 850 Mg Tablet, 1 TAB PO TID for 30 Days, #60 TAB 0 Refills 12/22/24 Discontinued Reported Medications Atorvastatin Calcium (Atorvastatin Calcium) 40 Mg Tablet, 40 MG PO HS, TAB 03/19/16 Metformin HCl (Metformin HCl) 1,000 Mg Tablet, 1000 MG PO BID, TAB 03/19/16 Ibuprofen (Ibuprofen 200 mg Tablet) 200 Mg Tablet, 200 MG PO AD PRN for PAIN, TAB 10/06/15 [Super B Complex] No Conflict Check, 2 CAP PO DAILY 10/06/15 [Herbal Supplement] No Conflict Check, 2 CAP PO DAILY 10/06/15 [Multivitamin W/Iron] No Conflict Check, 3 TAB PO DAILY 10/06/15 Hydrochlorothiazide (Hydrochlorothiazide) 12.5 Mg Tablet, 12.5 MG PO DAILY, TAB 10/06/15 Time spent arranging discharge: 31-60 minutes ATTESTATION BY PHYSICIAN I have seen and examined the patient. I reviewed the documentation, medical decision making, and treatment plan as noted by the mid-level provider above. I agree with the findings and plan of care. JUDD Carrera MD [employer] METAL WORKER December 23, 2024 14:40
--- NOTE | 2024-12-23 16:30 | NUR ---
DISCHARGE PERIPHERAL IV REMOVED DISCHARGE INSTRUCTIONS AND EDUCATION PROVIDED TO PATIENT AND FAMILY PATIENT AWARE TO KEEP APPOINTMENT ALREADY MADE WITH PCP. PATIENT AWARE TO FOLLOW UP WITH DR. PROCTOR 01/04/25 AT 3:30 P.M. PATIENT AWARE TO CONTINUE HOME MEDICATIONS DIRECTED BY MD. ALL QUESTIONS ANSWERED.
--- NOTE | 2024-12-23 16:31 | PN ---
GASTROENTEROLOGY PROGRESS NOTE Date of Visit: December 23, 2024 Time of Visit: 16:31 Events / Notes: [ ] Review of Systems: CONSTITUTIONAL: No malaise or change in sensation of wellbeing. ENMT: No rhinorrhea, otorrhea, sinus pain, ear ache. CARDIOVASCULAR: No angina, palpitations, orthopnea or paroxysmal dyspnea. RESPIRATORY: No SOB. GASTROINTESTINAL: No abdominal pain, nausea, vomiting, diarrhea, hematemesis, melena or change in the patient's habitual bowel movements consistency/number. GENITOURINARY: No dysuria, hematuria or change in bladder continence. MUSCULOSKELETAL: No new muscle pain or decrease in muscular strength. No new joint swelling, redness or tenderness. SKIN: No new rash. Physical Exam: GEN: Awake, alert, oriented in person, time and place, and in no acute distress. HEENT: No sinus tenderness. Tympanic membranes were not examined. No rhinorrhea. Oral pharyngeal mucosa is pink, moist and within normal limits. Neck is supple with no cervical lymphadenopathy, thyromegaly or JVD. CHEST: Inspection, palpation and percussion of the chest were unremarkable. Lung auscultation revealed normal breath sounds bilaterally. CARDIAC: PMI is within normal limits. Heart sounds are regular. Normal S1, S2. No gallop or murmur. ABD: Soft, non-tender and not distended. No peritoneal signs on palpation. No organomegaly. Normal bowel sounds. EXT: No cyanosis or clubbing. No edema. SKIN: Intact. No rashes. JOINTS: No evidence of synovitis or acute arthritis. NEURO: Alert and oriented to name, place and person. Cranial nerve examination is unremarkable. No focal motor deficits. Normal speech. Gait is normal. Strength is normal. Vital Signs (last 8hr) Date Time Temp Pulse Resp B/P (MAP) Pulse Ox O2 Delivery O2 Flow Rate FiO2 12/23/24 12:00 97.3 66 16 130/67 100 Room Air 12/23/24 09:18 100 Room Air* 0 21 Laboratory: [ ] Laboratory: Test 12/23/24 15:35 12/23/24 05:57 12/23/24 04:35 12/22/24 19:11 Range/Units Whole Blood Glucose 162 H 70-110 MG/DL Stool Lactoferrin (BENNY) POSITIVE H NEGATIVE C. difficile Antigen and Toxins A,B See comments NEG White Blood Count 6.5 4.8-10.8 K/uL Red Blood Count 4.11 4.00-5.50 MIL/uL Hemoglobin 11.1 L 12.0-16.0 g/dL Hematocrit 34.2 L 36-48 % Mean Corpuscular Volume 83.2 79-99 fL Mean Corpuscular Hemoglobin 27.0 27.0-33.0 pg Mean Corpuscular Hemoglobin Concent 32.5 32.0-36.0 g/dL Red Cell Distribution Width 16.3 H 11.0-15.5 % Platelet Count 254 130-400 K/uL Mean Platelet Volume 10.1 7.5-10.5 fL Immature Granulocyte % (Auto) 6.6 H 0-1 % Neutrophils (%) (Auto) 65.4 40.0-77.0 % Lymphocytes (%) (Auto) 14.1 L 21.0-51.0 % Monocytes (%) (Auto) 11.3 3.0-13.0 % Eosinophils (%) (Auto) 1.2 0.0-8.0 % Basophils (%) (Auto) 1.4 0.0-5.0 % Neutrophils # (Auto) 4.2 1.8-7.7 K/uL Lymphocytes # (Auto) 0.9 L 1.0-4.8 K/uL Monocytes # (Auto) 0.7 0.1-1.0 K/uL Eosinophils # (Auto) 0.08 0.00-0.70 K/uL Basophils # (Auto) 0.09 0.00-0.20 K/uL Absolute Immature Granulocyte (auto 0.43 0-1 K/uL Nucleated Red Blood Cells 0.0 0.0-0.19 % Sodium Level 143 136-145 mmol/L Potassium Level 3.8 3.5-5.1 mmol/L Chloride Level 107 101-111 mmol/L Carbon Dioxide Level 19 L 21-32 mmol/L Blood Urea Nitrogen 40 H 7-18 mg/dL Creatinine 1.2 H 0.5-1.0 mg/dL Glomerular Filtration Rate Calc 50 >90 mL/min Random Glucose 144 H 70-105 mg/dL Hemoglobin A1c 6.0 4.0-6.0 % Estimated Average Glucose (eAG) 126 70-126 mg/dL Lactic Acid Level 1.0 0.8-2.5 mmol/L Total Calcium 8.4 L 8.5-10.1 mg/dL Magnesium Level 1.80 1.80-2.40 mg/dL Total Bilirubin 0.3 0.2-1.0 mg/dL Direct Bilirubin 0.2 0.0-0.3 mg/dL Aspartate Amino Transf (AST/SGOT) 19 10-37 U/L Alanine Aminotransferase (ALT/SGPT) 18 12-78 U/L Alkaline Phosphatase 85 50-136 U/L Ammonia < 10 L 11-32 umol/L Total Creatine Kinase 36 # 21-232 U/L B-Type Natriuretic Peptide 53 0-100 pg/mL Total Protein 7.1 6.0-8.3 g/dL Albumin 3.1 L 3.5-5.0 g/dL Amylase Level 66 # 25-115 U/L Lipase 48 16-77 U/L Procalcitonin 0.09 0.05-0.5 ng/mL Urine Color ORANGE YELLOW Urine Appearance TURBID CLEAR Urine pH 6.0 5.0-8.0 Urine Specific [place] 1.026 1.001-1.031 Urine Protein 70 H NEGATIVE mg/dL Urine Glucose (UA) NEGATIVE NEGATIVE mg/dL Urine Ketones 10 H NEGATIVE mg/dL Urine Occult Blood NEGATIVE NEGATIVE Urine Nitrate NEGATIVE NEGATIVE Urine Bilirubin NEGATIVE NEGATIVE mg/dL Urine Urobilinogen 0.2 0.2-1.0 mg/dL Urine Leukocyte Esterase NEGATIVE NEGATIVE Devan/uL Urine RBC 0-1 0-1 /HPF Urine WBC 0-1 0-1 /HPF Urine Other Crystals (Auto) 21 None Seen /HPF Urine Amorphous Crystals (Auto) Few H None Seen /LPF Urine Bacteria MOD None Seen /HPF Urine Other Casts 24 None Seen /LPF Test 12/22/24 03:17 12/22/24 03:11 Range/Units Influenza Type A Antigen Negative For Type A NEGATIVE Influenza Type B Antigen Negative For Type B NEGATIVE SARS-CoV-2, RNA, NAAT NEGATIVE SARS CoV-2 NEGATIVE Group A Streptococcus Rapid negative NEGATIVE White Cell Morphology Comment See comments Current Medications Medications (Trade) Dose Ordered Sig/Haroon Route PRN Reason Start Time Stop Time Status Last Admin Dose Admin Acetaminophen (TYLenol 325MG TAB) 650 mg Q4H PRN PO MILD PAIN (1-3) 12/22/24 09:30 12/22/24 09:28 DC Acetaminophen (TYLenol 325MG TAB) 650 mg Q6H PRN PO MILD PAIN (1-3) 12/22/24 09:30 01/21/25 09:29 Acetaminophen (TYLenol 325MG TAB) 650 mg Q6H PRN PO TEMPERATURE GREATER THAN 101.5 12/22/24 09:30 01/21/25 09:29 Al Hydroxide/Mg Hydroxide (MAALox PLUS 30ML) 30 ml Q6H PRN PO INDIGESTION 12/22/24 09:30 01/21/25 09:29 Dextrose (D50w) 50 ml AD PRN IV HYPOGLYCEMIA PROTOCOL 12/22/24 09:30 01/21/25 09:29 Diphenhydramine HCl (BENAdryl INJ) 25 mg Q6H PRN IV SEVERE ITCHING/RASH 12/22/24 09:30 01/21/25 09:29 Famotidine (Pepcid 20mg Vial) 20 mg BID PRN IV NAUSEA/VOMITING 12/22/24 09:30 12/22/24 09:28 DC Famotidine (Pepcid 20mg Vial) 20 mg Q48H IV 12/22/24 21:00 01/21/25 20:59 12/22/24 20:56 20 MG Glucagon (Glucagon 1mg Kit) 1 mg AD PRN IM HYPOGLYCEMIA PROTOCOL 12/22/24 09:30 01/21/25 09:29 Guaifenesin/ Dextromethorphan (RobiTUSSin DM 200/20MG 10ML) 10 ml Q4H PRN PO COUGH 12/22/24 09:30 01/21/25 09:29 Heparin Sodium (Porcine) (HEParin 5,000 UNIT VIAL) 5,000 unit BID SQ 12/22/24 21:00 01/21/25 20:59 12/23/24 09:18 5,000 UNIT Hydralazine HCl (APRESOLine 20MG INJ) 10 mg Q6H PRN IV For:SBP above 160;DBP above 90 12/22/24 09:30 01/21/25 09:29 Insulin Human Regular (humuLIN R 100 UNIT/ML 3ML) INSULIN SLIDING SCAL... ACHS SQ 12/22/24 11:30 01/21/25 11:29 12/23/24 12:27 2 UNIT Lactulose (Constulose 20gm/ 30ml Udcup) 20 gm BID PRN PO CONSTIPATION 12/22/24 09:30 01/21/25 09:29 Magnesium Sulfate 50 ml @ 0 mls/hr PROTOCOL PRN IV OTHER [SEE ORDER COMMENTS] 12/22/24 09:30 01/21/25 09:29 12/23/24 12:25 25 MLS/HR Morphine Sulfate (morPHINE 2MG SYG) 1 mg Q4H PRN IVP SEVERE PAIN (7-10) IF NPO 12/22/24 09:30 12/29/24 09:29 Nitroglycerin (Nitrostat) 0.4 mg PROTOCOL PRN SL CHEST PAIN 12/22/24 09:30 01/21/25 09:29 Ondansetron HCl (zoFRAN 4MG INJ) 4 mg Q6H PRN IV NAUSEA/VOMITING 12/22/24 09:30 01/21/25 09:29 Oxycodone/ Acetaminophen (perCOCET) 1 tab Q6H PRN PO SEVERE PAIN (7-10) 12/22/24 09:30 12/22/24 13:19 DC Piperacillin Sod/ Tazobactam Sod 50 ml @ 12.5 mls/hr Q12H IV 12/23/24 01:30 01/01/25 12:59 12/23/24 12:26 12.5 MLS/HR Piperacillin Sod/ Tazobactam Sod 50 ml @ 12.5 mls/hr ZOSY8 IV 12/22/24 13:00 12/22/24 13:21 DC 12/22/24 13:09 12.5 MLS/HR Sodium Chloride 1,000 ml @ 100 mls/hr Q10H IV 12/22/24 09:30 01/21/25 09:29 12/22/24 20:59 100 MLS/HR Tramadol HCl (UltRAM) 50 mg Q6H PRN PO MODERATE PAIN (4-6) 12/22/24 09:30 12/27/24 09:29 Zolpidem Tartrate (AmbIEN) 5 mg HS PRN PO INSOMNIA 12/22/24 09:30 01/21/25 09:29 Diagnostics / Radiology: [COPY/PASTE HERE IF NO REPORTS PLEASE DELETE SECTION] Assessment: Diarrhea Plan: r/o c diff, await stool GI pcr Colonoscopy offered; however, patient defers Continue GI prophylaxis Avoid NSAIDs Antireflux measures Monitor H&H and transfuse as needed Call with questions, concerns or change in clinical status Patient to follow-up at clinic post discharge Thank you for this consult AMILCAR DO CAREER COORDINATOR December 23, 2024 16:31
[2024-12-25 07:13] LABS: C DIFFICILE TOXIN A/B Not Detected (Not Detected); ENTEROAGGREGATIVE ECOLI Not Detected (Not Detected); GIARDIA LAMBLIA Not Detected (Not Detected); PLESIOMONAS SHIGELOIDES Not Detected (Not Detected); SAPOVIRUS Not Detected (Not Detected); SHIGELLA/ENTEROINVASIVE E COLI Not Detected (Not Detected); VIBRIO Not Detected (Not Detected); VIBRIO CHOLERAE Not Detected (Not Detected)
== END 2024-12-23 16:30 | disposition home or self-care (01) ==
LOC: EDH 02:50 → UNDOADMOB 06:35 → EDHIP 06:35 → INTOOBSV 06:35 → 3BH 08:20 → EDHIP 08:20 → 3BH 12-23 08:00 → EDHIP 12-23 08:00
PROVIDERS: ADMIT Internal Medicine; ATTEND Internal Medicine
DX: N17.9 Acute kidney failure, unspecified (principal); Z20.822 Contact with and (suspected) exposure to COVID-19; K52.9 Noninfective gastroenteritis and colitis, unspecified; R11.2 Nausea with vomiting, unspecified; E11.65 Type 2 diabetes mellitus with hyperglycemia; I10 Essential (primary) hypertension; E87.8 Other disorders of electrolyte and fluid balance, not elsewhere classified; D50.9 Iron deficiency anemia, unspecified; E78.5 Hyperlipidemia, unspecified; E87.6 Hypokalemia; E86.0 Dehydration; Z90.49 Acquired absence of other specified parts of digestive tract; Z88.8 Allergy status to other drugs, medicaments and biological substances; Z79.899 Other long term (current) drug therapy
CPT/HCPCS: 96372 ×2; 96361 ×2; 96365; 96366 ×4; 96375 ×3; 99285; 80048 ×2; 83690 ×2; 85025 ×2; 87040 ×2; 87086; 87880; 87804 ×2; 82948 ×6; 81001; 36415 ×2; 87635; 71045; 74176; 96368; 83036; 82150; 82550; 80076; 83735; 83880; 82140; 83605; 87324; 87507; 84145; 83630; J3490; J2270; J7030; J2405; J2543 ×4; J1644 ×2; G0378 ×8; J3475; J1815; 96374